=== PATIENT | male | born 1985 | race Caucasian/White ===

== ENCOUNTER 2024-06-16 21:28 | Emergency (ER) | payer BC ==
[~2024-06-16] VITALS: Ht 180.3 cm; Wt 90.9 kg
[2024-06-16 21:32] VITALS: BP 107/71; PULSE 65; TEMP 98.3; O2SAT 98
[2024-06-16] MEDS: LIDOcaine 1% W/epiNEPHrine 1:100,000 20ml vial SQ ONE (21:35)
[2024-06-16 22:03] VITALS: RESP 22
[2024-06-16] MEDS: oxyCODONE/APAP 10/325mg tablet PO ONE (22:03)
[2024-06-16] MEDS: TETanus/Pertussis (Acell)/Diphther VAC/PF (Tdap-Adult) 0.5ml syringe IMVAC ONE (22:05)
[2024-06-16] MEDS: ondansetron 4mg rapidly disintigrating tab PO ONE (22:05)
[2024-06-16] MEDS ORDERED: AMOX-580 PO (23:07)
[2024-06-16] MEDS ORDERED: HYDR-3972 PO (23:09)
== END 2024-06-16 23:38 | disposition home or self-care (01) ==
LOC: ER 21:29
DX: S51.851A Open bite of right forearm, initial encounter (principal); W54.0XXA Bitten by dog, initial encounter; Y93.89 Activity, other specified; Y92.89 Other specified places as the place of occurrence of the external cause; Y99.8 Other external cause status; S51.811A Laceration without foreign body of right forearm, initial encounter
CPT/HCPCS: 12001; 90471; 90715; 99283; A6223; J7030; A6449